=== PATIENT | female | born 1940 | race Caucasian/White ===

== ENCOUNTER → 2016-12-05 | Outpatient (CLI) | payer MEDICARE ==
[~2016-12-05] MED LIST: ASPI81TA11 PO; BENZ100 PO; CALC-131 PO; CHERSYP2 PO; CHOL50006 PO; DICL1GEL TOPICAL; IPRAAER INH; IPRASOL INH; LATA.005%O EACH EYE; LEVO.05 PO; METO100T9 PO; MULT1TAB84 PO; POTA99TA PO; VITA10004 PO; VITA10007 PO; VITA400C2 PO; VITA8000 PO
[2016-12-05 09:27] LABS: HEMATOCRIT 40.5 % (35.0-46.0); MEAN CELL VOLUME 93.4 FL (80.0-100.0); MEAN CORPUSCULAR HEMOGLOBIN 31.1 PG (27.0-34.0); MEAN CORPUSCULAR HGB CONC 33.3 % (32.0-36.0); PLATELET COUNT 469 TH/MM3 (150-450); RED BLOOD COUNT 4.34 MIL/MM3 (4.00-5.30); RED CELL DISTRIBUTION WIDTH 13.6 % (11.6-17.2); REVIEW FLAG FINAL; WHITE BLOOD COUNT 7.8 TH/MM3 (4.0-11.0)
[2016-12-05 10:01] LABS: ALKALINE PHOSPHATASE 79 U/L (45-117); ALT (GPT) 21 U/L (10-53); ANION GAP 6 MEQ/L (5-15); AST (GOT) 13 U/L (15-37); BICARBONATE 30.3 MEQ/L (21.0-32.0); BLOOD UREA NITROGEN 15 MG/DL (7-18); CHLORIDE 107 MEQ/L (98-107); FREE T4 0.92 NG/DL (0.76-1.46); GLOMERULAR FILTRATION RATE 67 ML/MIN (>89); GLUCOSE,FASTING 88 MG/DL (74-99); HDL CHOLESTEROL 55.3 MG/DL (40.0-60.0); LDL CHOLESTEROL 125 MG/DL (0-99); LDL CHOLESTEROL DIRECT 141 MG/DL (0-99); SODIUM (NA) 143 MEQ/L (136-145); TOTAL BILIRUBIN ADULT 0.5 MG/DL (0.2-1.0)
== END ==
LOC: PLAB 07:39
PROVIDERS: ATTEND Family Medicine
DX: E78.2 Mixed hyperlipidemia (principal); I10 Essential (primary) hypertension; E03.8 Other specified hypothyroidism
CPT/HCPCS: 36415; 80053; 80061; 83721; 84439; 84443; 85027

== ENCOUNTER → 2017-03-17 | Outpatient (CLI) | payer MEDICARE ==
[2017-03-17 10:21] LABS: HEMATOCRIT 39.9 % (35.0-46.0); MEAN CELL VOLUME 91.9 FL (80.0-100.0); MEAN CORPUSCULAR HGB CONC 33.7 % (32.0-36.0); PLATELET COUNT 408 TH/MM3 (150-450); RED BLOOD COUNT 4.34 MIL/MM3 (4.00-5.30); RED CELL DISTRIBUTION WIDTH 13.7 % (11.6-17.2); REVIEW FLAG FINAL; WHITE BLOOD COUNT 5.7 TH/MM3 (4.0-11.0)
[2017-03-17 10:45] LABS: ANION GAP 7 MEQ/L (5-15); AST (GOT) 16 U/L (15-37); BICARBONATE 28.8 MEQ/L (21.0-32.0); BLOOD UREA NITROGEN 14 MG/DL (7-18); CHLORIDE 108 MEQ/L (98-107); GLOMERULAR FILTRATION RATE 84 ML/MIN (>89); GLUCOSE,FASTING 89 MG/DL (74-99); POTASSIUM 4.1 MEQ/L (3.5-5.1); SODIUM (NA) 144 MEQ/L (136-145)
[2017-03-17 10:56] LABS: ALKALINE PHOSPHATASE 70 U/L (45-117); ALT (GPT) 19 U/L (10-53); TOTAL BILIRUBIN ADULT 0.6 MG/DL (0.2-1.0)
[2017-03-17 10:57] LABS: FREE T4 0.89 NG/DL (0.76-1.46); LDL CHOLESTEROL 114 MG/DL (0-99); LDL CHOLESTEROL DIRECT 112 MG/DL (0-99)
== END ==
LOC: PLAB 08:45
PROVIDERS: ATTEND Family Medicine
DX: E78.2 Mixed hyperlipidemia (principal); I10 Essential (primary) hypertension; E03.8 Other specified hypothyroidism
CPT/HCPCS: 36415; 80053; 80061; 83721; 84439; 84443; 85027

== ENCOUNTER → 2017-06-22 | Outpatient (CLI) | payer MEDICARE ==
[2017-06-22 08:54] LABS: HEMATOCRIT 41.7 % (35.0-46.0); MEAN CELL VOLUME 93.9 FL (80.0-100.0); MEAN CORPUSCULAR HEMOGLOBIN 30.5 PG (27.0-34.0); MEAN CORPUSCULAR HGB CONC 32.5 % (32.0-36.0); PLATELET COUNT 426 TH/MM3 (150-450); RED BLOOD COUNT 4.44 MIL/MM3 (4.00-5.30); RED CELL DISTRIBUTION WIDTH 13.8 % (11.6-17.2); REVIEW FLAG FINAL; WHITE BLOOD COUNT 7.7 TH/MM3 (4.0-11.0)
[2017-06-22 09:49] LABS: BICARBONATE 27.5 MEQ/L (21.0-32.0); BLOOD UREA NITROGEN 20 MG/DL (7-18); GLOMERULAR FILTRATION RATE 73 ML/MIN (>89); GLUCOSE,FASTING 81 MG/DL (74-99)
[2017-06-22 09:51] LABS: AST (GOT) 18 U/L (15-37)
[2017-06-22 09:59] LABS: ALKALINE PHOSPHATASE 75 U/L (45-117); ALT (GPT) 25 U/L (10-53); FREE T4 0.83 NG/DL (0.76-1.46); HDL CHOLESTEROL 55.2 MG/DL (40.0-60.0); LDL CHOLESTEROL 94 MG/DL (0-99); LDL CHOLESTEROL DIRECT 114 MG/DL (0-99); TOTAL BILIRUBIN ADULT 0.4 MG/DL (0.2-1.0)
[2017-06-22 10:03] LABS: ANION GAP 8 MEQ/L (5-15); CHLORIDE 107 MEQ/L (98-107); POTASSIUM 4.3 MEQ/L (3.5-5.1); SODIUM (NA) 142 MEQ/L (136-145)
== END ==
LOC: PLAB 07:35
PROVIDERS: ATTEND Family Medicine
DX: E78.2 Mixed hyperlipidemia (principal); I10 Essential (primary) hypertension; E03.8 Other specified hypothyroidism
CPT/HCPCS: 36415; 80053; 80061; 83721; 84439; 84443; 85027

== ENCOUNTER → 2017-09-17 | Outpatient (CLI) | payer MEDICARE ==
[~2017-09-17] MED LIST changes: -ASPI81TA11 PO; +ASPI81TA23 PO; -METO100T9 PO; +METO1TAB43 PO
[2017-09-17 09:29] LABS: HEMATOCRIT 40.8 % (35.0-46.0); MEAN CELL VOLUME 95.9 FL (80.0-100.0); MEAN CORPUSCULAR HEMOGLOBIN 31.2 PG (27.0-34.0); MEAN CORPUSCULAR HGB CONC 32.5 % (32.0-36.0); PLATELET COUNT 415 TH/MM3 (150-450); RED BLOOD COUNT 4.26 MIL/MM3 (4.00-5.30); RED CELL DISTRIBUTION WIDTH 13.4 % (11.6-17.2); REVIEW FLAG FINAL; WHITE BLOOD COUNT 6.8 TH/MM3 (4.0-11.0)
[2017-09-17 10:31] LABS: ALT (GPT) 25 U/L (10-53); ANION GAP 6 MEQ/L (5-15); BICARBONATE 28.9 MEQ/L (21.0-32.0); BLOOD UREA NITROGEN 11 MG/DL (7-18); CHLORIDE 109 MEQ/L (98-107); GLUCOSE,FASTING 89 MG/DL (74-99); POTASSIUM 3.9 MEQ/L (3.5-5.1); SODIUM (NA) 144 MEQ/L (136-145)
[2017-09-17 11:13] LABS: ALKALINE PHOSPHATASE 73 U/L (45-117); AST (GOT) 20 U/L (15-37); FREE T4 0.88 NG/DL (0.76-1.46); GLOMERULAR FILTRATION RATE 85 ML/MIN (>89); HDL CHOLESTEROL 58.5 MG/DL (40.0-60.0); LDL CHOLESTEROL 97 MG/DL (0-99); LDL CHOLESTEROL DIRECT 113 MG/DL (0-99); TOTAL BILIRUBIN ADULT 0.6 MG/DL (0.2-1.0); TRANSFERRIN IRON PROFILE 222 MG/DL (200-360)
== END ==
LOC: PLAB 08:07
PROVIDERS: ATTEND Family Medicine
DX: D64.9 Anemia, unspecified (principal); E78.4 Other hyperlipidemia; I10 Essential (primary) hypertension; E03.8 Other specified hypothyroidism
CPT/HCPCS: 36415; 80053; 80061; 82607; 83540; 83550; 83721; 84439; 84443; 85027

== ENCOUNTER 2017-10-05 10:51 | Emergency (ER) | payer MEDICARE ==
[~2017-10-05] VITALS: Ht 165.1 cm; Wt 80.0 kg
[2017-10-05 10:57] VITALS: BP 133/80; PULSE 77; RESP 16; TEMP 98.5; O2SAT 96
[2017-10-05] MEDS ORDERED: VITA500T83 PO (11:27)
[2017-10-05] MEDS ORDERED: VITA1CAP17 PO (11:27)
[2017-10-05] MEDS ORDERED: MULTTAB67 PO (11:27)
[2017-10-05] MEDS ORDERED: ZITHTAB PO (11:36)
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
== END 2017-10-05 11:47 | disposition home or self-care (01) ==
LOC: PHED 10:51
DX: J40 Bronchitis, not specified as acute or chronic (principal); J44.9 Chronic obstructive pulmonary disease, unspecified; E78.00 Pure hypercholesterolemia, unspecified; E07.9 Disorder of thyroid, unspecified; Z86.79 Personal history of other diseases of the circulatory system; Z87.39 Personal history of other diseases of the musculoskeletal system and connective tissue
CPT/HCPCS: 99283

== ENCOUNTER → 2017-12-17 | Outpatient (CLI) | payer MEDICARE ==
[~2017-12-17] MED LIST changes: -BENZ100 PO; -CHERSYP2 PO; -CHOL50006 PO; -DICL1GEL TOPICAL; -MULT1TAB84 PO; +MULTTAB67 PO; -POTA99TA PO; -VITA10007 PO; +VITA1CAP17 PO; -VITA400C2 PO; +VITA500T83 PO; -VITA8000 PO; +ZITHTAB PO
[2017-12-17 17:32] LABS: HEMATOCRIT 38.1 % (35.0-46.0); HEMOGLOBIN 13.3 GM/DL (11.6-15.3); MEAN CELL VOLUME 92.9 FL (80.0-100.0); MEAN CORPUSCULAR HEMOGLOBIN 32.4 PG (27.0-34.0); MEAN CORPUSCULAR HGB CONC 34.9 % (32.0-36.0); MEAN PLATELET VOLUME 8.7 FL (7.0-11.0); PLATELET COUNT 415 TH/MM3 (150-450); RED CELL DISTRIBUTION WIDTH 13.5 % (11.6-17.2); WHITE BLOOD COUNT 7.5 TH/MM3 (4.0-11.0)
[2017-12-17 17:45] LABS: ALBUMIN 3.7 GM/DL (3.4-5.0); AST (GOT) 24 U/L (15-37); BICARBONATE 29.1 MEQ/L (21.0-32.0); BLOOD UREA NITROGEN 16 MG/DL (7-18); CALCIUM 8.9 MG/DL (8.5-10.1); CHLORIDE 106 MEQ/L (98-107); CHOLESTEROL 185 MG/DL (120-200); CREATININE 0.74 MG/DL (0.50-1.00); GLOMERULAR FILTRATION RATE 76 ML/MIN (>89); GLUCOSE,FASTING 75 MG/DL (74-99); SODIUM (NA) 143 MEQ/L (136-145); TRIGLYCERIDES 126 MG/DL (42-150)
[2017-12-17 17:54] LABS: ALKALINE PHOSPHATASE 70 U/L (45-117); ALT (GPT) 21 U/L (10-53); CHOLESTEROL/ HDL RATIO 3.44 RATIO; FREE T4 0.95 NG/DL (0.76-1.46); HDL CHOLESTEROL 53.7 MG/DL (40.0-60.0); LDL CHOLESTEROL 106 MG/DL (0-99); LDL CHOLESTEROL DIRECT 116 MG/DL (0-99); TOTAL BILIRUBIN ADULT 0.5 MG/DL (0.2-1.0); TOTAL PROTEIN 7.2 GM/DL (6.4-8.2)
[2017-12-17 19:06] LABS: HEMOGLOBIN A1C 5.5 % (4.3-6.0)
== END ==
LOC: PLAB 11:33
PROVIDERS: ATTEND Family Medicine
DX: E78.2 Mixed hyperlipidemia (principal); I10 Essential (primary) hypertension; E03.8 Other specified hypothyroidism; R73.01 Impaired fasting glucose
CPT/HCPCS: 80053; 80061; 83036; 83721; 84439; 84443; 85027

== ENCOUNTER → 2018-03-22 | Outpatient (CLI) | payer MEDICARE ==
[2018-03-22 10:21] LABS: HEMATOCRIT 41.4 % (35.0-46.0); HEMOGLOBIN 13.7 GM/DL (11.6-15.3); MEAN CELL VOLUME 93.2 FL (80.0-100.0); MEAN CORPUSCULAR HEMOGLOBIN 30.9 PG (27.0-34.0); MEAN CORPUSCULAR HGB CONC 33.1 % (32.0-36.0); MEAN PLATELET VOLUME 8.7 FL (7.0-11.0); PLATELET COUNT 435 TH/MM3 (150-450); RED BLOOD COUNT 4.44 MIL/MM3 (4.00-5.30); RED CELL DISTRIBUTION WIDTH 13.4 % (11.6-17.2); WHITE BLOOD COUNT 6.7 TH/MM3 (4.0-11.0)
[2018-03-22 10:35] LABS: ALBUMIN 3.8 GM/DL (3.4-5.0); AST (GOT) 22 U/L (15-37); BICARBONATE 27.1 MEQ/L (21.0-32.0); BLOOD UREA NITROGEN 20 MG/DL (7-18); CHLORIDE 108 MEQ/L (98-107); CHOLESTEROL 187 MG/DL (120-200); CREATININE 0.83 MG/DL (0.50-1.00); GLOMERULAR FILTRATION RATE 66 ML/MIN (>89); GLUCOSE,FASTING 71 MG/DL (74-99); SODIUM (NA) 144 MEQ/L (136-145)
[2018-03-22 10:45] LABS: ALKALINE PHOSPHATASE 87 U/L (45-117); ALT (GPT) 25 U/L (10-53); CHOLESTEROL/ HDL RATIO 3.64 RATIO; FREE T4 0.81 NG/DL (0.76-1.46); HDL CHOLESTEROL 51.3 MG/DL (40.0-60.0); LDL CHOLESTEROL 107 MG/DL (0-99); LDL CHOLESTEROL DIRECT 130 MG/DL (0-99); TOTAL BILIRUBIN ADULT 0.5 MG/DL (0.2-1.0); TOTAL PROTEIN 7.2 GM/DL (6.4-8.2); TRIGLYCERIDES 145 MG/DL (42-150)
== END ==
LOC: PLAB 08:14
PROVIDERS: ATTEND Family Medicine
DX: E78.2 Mixed hyperlipidemia (principal); E03.8 Other specified hypothyroidism
CPT/HCPCS: 36415; 80053; 80061; 83721; 84439; 84443; 85027